=== PATIENT | female | born 1965 | race Caucasian/White ===

== ENCOUNTER 2022-03-22 22:44 | Emergency (ER) | payer OTHER ==
[2022-03-22 22:49] VITALS: RESP 18; TEMP 98; BMI 23.2
[2022-03-22] MEDS ORDERED: SODIUM CHLORIDE 0.9% 1000 ML INFUS.BAG IV ONE (23:54)
[2022-03-22] MEDS ORDERED: methylPREDNISolone NA SUCC 125 MG/2 ML VIAL IVPB ONE (23:54)
[2022-03-22] MEDS ORDERED: FAMOTIDINE 20 MG/50 ML IVPB 20 MG/50 ML MG IVPB ONE (23:54)
[2022-03-22] MEDS ORDERED: methylPREDNISolone NA SUCC 125 MG/2 ML VIAL ONE (23:58)
[2022-03-23 01:40] VITALS: BP 127/80; PULSE 94
== END 2022-03-23 01:40 | disposition home or self-care (01) ==
LOC: JER 22:44
PROC: 3E033GC Introduction of Other Therapeutic Substance into Peripheral Vein, Percutaneous Approach (ICD-10-PCS; principal; 2022-03-22)
DX: L50.9 Urticaria, unspecified (principal)
CPT/HCPCS: 99284-25

== ENCOUNTER 2024-01-10 08:17 | Emergency (ER) | payer OTHER ==
[2024-01-10 08:37] VITALS: BP 145/83; PULSE 81; RESP 18; TEMP 97.7; BMI 23.6
[2024-01-10] MEDS ORDERED: LIDOCAINE 4% PATCH TP ONE (09:08)
[2024-01-10] MEDS ORDERED: KETOROLAC TROMETHAMINE 30 MG/1 ML VIAL ONE (09:08)
[2024-01-10] MEDS ORDERED: METHOCARBAMOL 500 MG TABLET ONE (09:08)
[2024-01-10] MEDS: KETOROLAC TROMETHAMINE 30 MG/1 ML VIAL IM ONE (09:19)
[2024-01-10] MEDS: LIDOCAINE 4% PATCH TP ONE (09:19)
[2024-01-10] MEDS: METHOCARBAMOL 750 MG TAB PO ONE (09:20)
== END 2024-01-10 09:46 | disposition home or self-care (01) ==
LOC: JER 08:17
PROC: 3E0233Z Introduction of Anti-inflammatory into Muscle, Percutaneous Approach (ICD-10-PCS; principal; 2024-01-10)
DX: S39.012A Strain of muscle, fascia and tendon of lower back, initial encounter (principal); X50.1XXA Overexertion from prolonged static or awkward postures, initial encounter
CPT/HCPCS: 99284-25